=== PATIENT | male | born 2000 | race Caucasian/White ===

== ENCOUNTER 2024-03-29 16:33 | Emergency (ER) | payer OTHER, SELFPAY ==
[2024-03-29 16:40] VITALS: BP 131/86; PULSE 91; RESP 14; TEMP 37.3; O2SAT 95; BMI 30.1
--- NOTE | 2024-03-29 18:20 | ED_ITS ---
HPI - Fall General Chief Complaint: Fall Stated Complaint: fell at work, hit head Time Seen by Provider: 03/29/24 17:07 Source: patient Mode of arrival: Ambulatory History of Present Illness HPI Narrative: 23-year-old male presents for evaluation after a fall earlier today at work. Patient states that he was at work carrying a heavy battery when his right ankle rolled and he fell, landing on his right-hand side. 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 Patient states that he feels fine and has no complaints. He states that he does occasionally have syncopal episodes, but usually after something such as seeing blood or becoming agitated Patient History Social History Smoking Status: Never smoker Smoking Status: Never smoker alcohol intake frequency: holidays/special occasions only Exam Initial Vital Signs Initial Vital Signs: Vital Signs Temperature 99.1 F 03/29/24 16:40 Pulse Rate 91 H 03/29/24 16:40 Respiratory Rate 14 03/29/24 16:40 Blood Pressure 131/86 03/29/24 16:40 Pulse Oximetry 95 03/29/24 16:40 Oxygen Delivery Method Room Air 03/29/24 16:40 Const: Awake, alert, no acute distress, nontoxic appearing Cardiac: regular rate, regular rhythm RESP: unlabored, clear bilaterally, no wheezing GI: Soft, nontender, nondistended, no rebound, no guarding MSK: Atraumatic, full range of motion, pulses equal Skin: Warm, Dry, intact, no rashes Neuro: AO x3, CN II-XII grossly intact, moves all extremities Course Orders Ordered: ED Orders 03/29/24 18:20 EKG-12 Lead Stat Vital Signs Vital signs: Vital Signs - 8 hr 03/29/24 16:40 Temperature 99.1 F Pulse Rate 91 H Respiratory Rate 14 Blood Pressure 131/86 Pulse Oximetry 95 Oxygen Delivery Method Room Air MDM - Fall Differential Diagnosis Differential diagnosis: Likely syncope, fracture of wrist and compression fracture MDM Narrative Medical decision making narrative: Well-appearing patient presenting for evaluation after rolling his ankle and falling earlier today. He has a small contusion on the outer right wrist without deformity or tenderness to palpation. Ankle is nontender, non deformed, he was ambulatory without difficulty. There is a question of possible syncope, but patient denies this to myself. The syncopal episodes that he describes that he has had in the past seem vasovagal, especially when described around the site of seeing blood. EKG is normal sinus rhythm without concerning arrhythmias. Triage note states hit head, however patient denies this to myself. Discharge Plan Departure Patient Disposition: Home Clinical Impression: Contusion of right wrist Instructions: DI for Contusion Activity Restrictions/Additional Instructions: take tylenol and ibuprofen for pain as needed. 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 Stand Alone Forms: Patient Portal/API
--- NOTE | 2024-03-29 18:43 | EKG_ITS ---
[address] [address] Test Date: 2024-03-29 Pat Name: Juan Arroyo Department: 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
== END 2024-03-29 19:18 | disposition home or self-care (01) ==
PROVIDERS: Emergency Provider Emergency Medicine
DX: S60.211A Contusion of right wrist, initial encounter (principal); W01.0XXA Fall on same level from slipping, tripping and stumbling without subsequent striking against object, initial encounter; Y93.89 Activity, other specified
CPT/HCPCS: 93005; 99281; 99282